=== PATIENT | male | born 1940 ===

== ENCOUNTER 2016-12-09 06:41 | Day surgery (SDC) | payer MEDICARE, OTHER ==
[~2016-12-09] VITALS: Ht 185.4 cm; Wt 85.3 kg
--- NOTE | ~2016-12-09 | EGD ---
EGD REPORT [facility] [address] [place]. [address] NAME: BECCA RAMIREZ : [birth year] STATUS : REG [facility]#: [id number] AGE: 76 ADM/REG DATE : 12/09/16 MR#: [id number] REPORT SERV DATE: 12/09/16 DICTATED BY: CARLOS VALADEZ DATE: 12/09/16 REPORT STATUS : Draft [facility]ANSCRIBED BY: [facility] DATE: 12/09/16 Endoscopy Center Patient Name: Becca Ramirez Date of : 1940 Attending MD: CARLOS VALADEZ MD Procedure Date No Time: 12/09/2016 Procedure: Upper GI endoscopy Indications: Epigastric abdominal pain, Heartburn Referring MD: KASHIF WILL Medicines: Monitored Anesthesia Care Complications: No immediate complications. Procedure: Pre-Anesthesia Assessment: - ASA Grade Assessment: III - A patient with severe systemic disease. After obtaining informed consent, the endoscope was passed under direct vision. Throughout the procedure, the patient's blood pressure, pulse, and oxygen saturations were monitored continuously. The GIF [id number] was introduced through the mouth, and advanced to the second part of duodenum. The upper GI endoscopy was accomplished without difficulty. The patient tolerated the procedure well. Findings: The Z-line was irregular and was found at the gastroesophageal junction. Biopsies were taken with a cold forceps for histology. The entire examined stomach was normal. The cardia and gastric fundus were normal on retroflexion. The duodenal bulb and 2nd part of the duodenum were normal. Impression: - Z-line irregular, at the gastroesophageal junction. Biopsied. - Normal stomach. - Normal duodenal bulb and 2nd part of the duodenum. Recommendation: - Patient has a contact number available for emergencies. The signs and symptoms of potential delayed complications were discussed with the patient. Return to normal activities tomorrow. Written discharge instructions were provided to the patient. - Regular diet. - Continue present medications. - Follow an antireflux regimen. Procedure Code(s): --- Professional --- EGD REPORT [facility] [address] [place] [address] [place]. [address] NAME: BECCA RAMIREZ : [birth year] STATUS : REG [facility] PAT#: [id number] AGE: 76 ADM/REG DATE : 12/09/16 MR#: [id number] REPORT SERV DATE: 12/09/16 DICTATED BY: CARLOS VALADEZ DATE: 12/09/16 REPORT STATUS : Draft TRANSCRIBED BY: [facility] DATE: 12/09/16 [id number], Esophagogastroduodenoscopy, flexible, transoral; with biopsy, single or multiple Diagnosis Code(s): --- Professional --- K22.8, Other specified diseases of esophagus R10.13, Epigastric pain R12, Heartburn CPT copyright 2013 [employer]. All rights reserved. The codes documented in this report are preliminary and upon tilting saw operator review may be revised to meet current compliance requirements. CARLOS VALADEZ MD 12/09/2016 8:31 AM This report has been signed electronically. Number of Addenda: 0 Note Initiated On: 12/09/2016 8:15 AM Scope Withdrawal Time 0 hours 0 minutes [address] [facility] [place] [address]
--- NOTE | ~2016-12-09 | EGD ---
EGD REPORT [facility] [address] [address] NAME: BECCA RAMIREZ : 44 STATUS : REG [facility] PAT#: [id number] AGE: 76 ADM/REG DATE : 12/09/16 MR#: [id number] REPORT SERV DATE: 12/09/16 DICTATED BY: CARLOS VALADEZ DATE: 12/09/16 REPORT STATUS : Draft TRANSCRIBED BY: [employer] DATE: 12/09/16 Endoscopy Center Patient Name: Becca Ramirez Date of : 1940 Attending MD: CARLOS VALADEZ MD Procedure Date No Time: 12/09/2016 Procedure: Colonoscopy Indications: Screening in patient at increased risk: Family history of 1st-degree relative with colorectal cancer Referring MD: KASHIF WILL Medicines: Monitored Anesthesia Care Complications: No immediate complications. Procedure: Pre-Anesthesia Assessment: - ASA Grade Assessment: III - A patient with severe systemic disease. After I obtained informed consent, the scope was passed under direct vision. Throughout the procedure, the patient's blood pressure, pulse, and oxygen saturations were monitored continuously. The CF [id number] was introduced through the anus and advanced to the cecum, identified by appendiceal orifice and ileocecal valve. The colonoscopy was extremely difficult due to significant looping and a tortuous colon. Successful completion of the procedure was aided by changing the patient to a supine position and applying abdominal pressure. The patient tolerated the procedure fairly well. The quality of the bowel preparation was adequate. Findings: The digital rectal exam was normal. Pertinent negatives include no palpable rectal lesions. A sessile polyp was found in the transverse colon. The polyp was 5 mm in size. The polyp was removed with a cold biopsy forceps. Resection and retrieval were complete. Two sessile polyps were found in the ascending colon. The polyps were 6 to 11 mm in size. These polyps were removed with a cold snare. Resection and retrieval were complete. Three sessile polyps were found in the ascending colon. The polyps were 4 to 6 mm in size. These polyps were removed with a cold biopsy forceps. Resection and retrieval were complete. A sessile polyp was found in the descending colon. The polyp was 5 mm in size. The polyp was removed with a cold biopsy forceps. Resection and retrieval were complete. A few diverticula were found in the sigmoid colon. Hemorrhoids were found during retroflexion and were mild. EGD REPORT [address] [place]. [address] NAME: BECCA RAMIREZ : 44 STATUS : [facility] [place] PAT#: [id number] AGE: 76 ADM/REG DATE : 12/09/16 MR#: [id number] REPORT SERV DATE: 12/09/16 DICTATED BY: CARLOS VALADEZ DATE: 12/09/16 REPORT STATUS : Draft TRANSCRIBED BY: [employer] DATE: 12/09/16 Impression: - One 5 mm polyp in the transverse colon. Resected and retrieved. - Two 6 to 11 mm polyps in the ascending colon. Resected and retrieved. - Three 4 to 6 mm polyps in the ascending colon. Resected and retrieved. - One 5 mm polyp in the descending colon. Resected and retrieved. - Diverticulosis in the sigmoid colon. - Hemorrhoids. Recommendation: - Patient has a contact number available for emergencies. The signs and symptoms of potential delayed complications were discussed with the patient. Return to normal activities tomorrow. Written discharge instructions were provided to the patient. - Regular diet. - Continue present medications. - Await pathology results. - Repeat colonoscopy for surveillance based on pathology results. - Return to GI clinic in 3 weeks. Procedure Code(s): --- Professional --- 79393, Colonoscopy, flexible, proximal to splenic flexure; with removal of tumor(s), polyp(s), or other lesion(s) by snare technique 10791, 59, Colonoscopy, flexible, proximal to splenic flexure; with biopsy, single or multiple Diagnosis Code(s): --- Professional --- D12.4, Benign neoplasm of descending colon D12.2, Benign neoplasm of ascending colon D12.3, Benign neoplasm of transverse colon K64.9, Unspecified hemorrhoids K57.30, Diverticulosis of large intestine without perforation or abscess without bleeding Z12.11, Encounter for screening for malignant neoplasm of colon Z80.0, Family history of malignant neoplasm of digestive organs CPT copyright 2013 [employer]. All rights reserved. The codes documented in this report are preliminary and upon clinical coder review may EGD REPORT [facility] [address] [address] NAME: BECCA RAMIREZ : 44 STATUS : REG [facility] [place] PAT#: [id number] AGE: 76 ADM/REG DATE : 12/09/16 MR#: [id number] REPORT SERV DATE: 12/09/16 DICTATED BY: CARLOS VALADEZ DATE: 12/09/16 REPORT STATUS : Draft TRANSCRIBED BY: [employer] DATE: 12/09/16 be revised to meet current compliance requirements. CARLOS VALADEZ MD 12/09/2016 9:12 AM This report has been signed electronically. Number of Addenda: 0 Note Initiated On: 12/09/2016 8:16 AM Scope Withdrawal Time 0 hours 28 minutes 19 seconds [address] [address]
[~2016-12-09 06:41] MED LIST: CELEXA20 PO; HALF81 PO; LAM250 PO; LIPITOR80 MG PO; MCZ25 PO; TYLENOL PM PO; Z100 PO; ZANTAC 150 PO; [UNRECOGNIZED DRUG - OTHER] NAS
== END 2016-12-09 23:59 | disposition home or self-care (01) ==
LOC: DMU 06:41
PROVIDERS: Internal Medicine Gastroenterology
PROC: 0DBK8ZX Excision of Ascending Colon, Via Natural or Artificial Opening Endoscopic, Diagnostic (ICD-10-PCS; 2016-12-09)
PROC: 0DB48ZX Excision of Esophagogastric Junction, Via Natural or Artificial Opening Endoscopic, Diagnostic (ICD-10-PCS; 2016-12-09)
PROC: 0DBL8ZX Excision of Transverse Colon, Via Natural or Artificial Opening Endoscopic, Diagnostic (ICD-10-PCS; principal; 2016-12-09 08:30)
PROC: 0DBM8ZX Excision of Descending Colon, Via Natural or Artificial Opening Endoscopic, Diagnostic (ICD-10-PCS; 2016-12-09 08:30)
PROC: 0DBK8ZX Excision of Ascending Colon, Via Natural or Artificial Opening Endoscopic, Diagnostic (ICD-10-PCS; 2016-12-09 08:30)
DX: Z12.11 Encounter for screening for malignant neoplasm of colon (principal); D12.4 Benign neoplasm of descending colon; D12.2 Benign neoplasm of ascending colon; K63.5 Polyp of colon; K29.50 Unspecified chronic gastritis without bleeding; K57.30 Diverticulosis of large intestine without perforation or abscess without bleeding; K64.9 Unspecified hemorrhoids; Z86.73 Personal history of transient ischemic attack (TIA), and cerebral infarction without residual deficits; Z80.0 Family history of malignant neoplasm of digestive organs; Z88.5 Allergy status to narcotic agent; Z79.82 Long term (current) use of aspirin; Z90.49 Acquired absence of other specified parts of digestive tract; Z87.442 Personal history of urinary calculi; Z95.828 Presence of other vascular implants and grafts; Z98.41 Cataract extraction status, right eye; Z98.42 Cataract extraction status, left eye; Z96.1 Presence of intraocular lens; Z98.890 Other specified postprocedural states; Z79.899 Other long term (current) drug therapy
CPT/HCPCS: 88305